=== PATIENT | male | born 1955 | race Caucasian/White ===

== ENCOUNTER → 2016-03-02 | Outpatient (CLI) | payer OTHER ==
[~2016-03-02] MED LIST: ASPIRIN 81M81 MG/TA2 PO; CELEBREX 1100 MG/CAP PO; FLEXERIL 1010 MG/TAB PO; HCTZ 25MG TAB25 MG PO; LIPITOR20 MG PO; PLAVIX 75MG TAB75 MG PO; TOPROL XL 50MG50 MG PO; ULTRAM 50MG TAB50 MG PO
== END ==
LOC: COL.RAD 09:12
DX: Z02.71 Encounter for disability determination (principal); M48.06 Spinal stenosis, lumbar region; G95.89 Other specified diseases of spinal cord

== ENCOUNTER 2016-06-01 12:30 | Outpatient (RCR) | payer MEDICAID | END 2016-06-02 07:57 | disposition home or self-care (01) | LOC: WSPT 12:30 | DX: M21.372 Foot drop, left foot (principal) ==

== ENCOUNTER 2016-07-08 08:33 | Day surgery (SDC) | payer MEDICAID ==
[2016-07-08] VITALS (11 sets, daily range): BP systolic 140–183; BP diastolic 82–108; PULSE 12–117; TEMP 98.5
[~2016-07-08] VITALS: Ht 172.8 cm; Wt 90.9 kg
[2016-07-08] MEDS ORDERED: FLEXERIL 1010 MG/TAB PO (09:50)
[2016-07-08] MEDS ORDERED: ULTRAM 50MG TAB50 MG PO (09:50)
[2016-07-08] MEDS ORDERED: HCTZ 25MG TAB25 MG PO (09:50)
[2016-07-08] MEDS ORDERED: CELEBREX 1100 MG/CAP PO (09:51)
[2016-07-08 10:11] LABS: HEMATOCRIT 48.8 % (42.0-52.0); HEMOGLOBIN 17.2 g/dl (13.5-18.0); MEAN CELL VOLUME 89 fl (80.0-100.0); MEAN CORPUSCULAR HEMOGLOBIN 31 pg (27.0-31.0); MEAN CORPUSCULAR HGB CONC 35 g/dl (33.0-37.0); MEAN PLATELET VOLUME 9.1 fl (7.4-10.4); PLATELET COUNT 224 K/mm3 (130-400); RED BLOOD COUNT 5.48 M/mm3 (4.20-5.60); REDCELL DISTRIBUTION WIDTH-CV 12.6 % (11.5-14.5); WHITE BLOOD COUNT 4.1 K/mm3 (4.8-10.8)
[2016-07-08 10:13] LABS: PROTHROMBIN TIME 10.5 SECONDS (9.7-12.8)
[2016-07-08 10:26] LABS: CALCIUM 9.1 mg/dL (8.4-10.2); CREATININE, serum 0.75 mg/dL (0.66-1.25); POTASSIUM 3.8 mmol/L (3.4-5.0)
[2016-07-08] MEDS ORDERED: ASPIRIN 81M81 MG/TA2 PO (19:10)
[2016-07-08] MEDS ORDERED: PLAVIX 75MG TAB75 MG PO (19:10)
[2016-07-08] MEDS ORDERED: TOPROL XL 50MG50 MG PO (19:11)
[2016-07-08] MEDS ORDERED: LIPITOR20 MG PO (19:11)
== END 2016-07-08 19:17 | disposition home or self-care (01) ==
LOC: EUO 08:33 → COL.CAR 09:00 → EUO 19:17
PROVIDERS: Internal Medicine Cardiovascular Disease
DX: I25.10 Atherosclerotic heart disease of native coronary artery without angina pectoris (principal)
CPT/HCPCS: C1760; C1769; C1894; J0360; J1644; J2250; J3010; Q9967

== ENCOUNTER 2016-10-22 15:00 | Outpatient (RCR) | payer MEDICAID | END 2016-12-07 | disposition home or self-care (01) | LOC: COL.CR | DX: Z48.812 Encounter for surgical aftercare following surgery on the circulatory system (principal); Z95.5 Presence of coronary angioplasty implant and graft; I25.119 Atherosclerotic heart disease of native coronary artery with unspecified angina pectoris ==

== ENCOUNTER → 2017-09-28 | Outpatient (CLI) | payer MEDICARE, MEDICAID | LOC: MC.RAD 12:55 | DX: N62 Hypertrophy of breast (principal); N63.20 Unspecified lump in the left breast, unspecified quadrant ==

== ENCOUNTER 2018-12-14 11:37 | Inpatient (IN) | payer MEDICARE, MEDICAID ==
[~2018-12-14] VITALS: Ht 172.7 cm; Wt 96.4 kg
[2019-02-28] VITALS (11 sets, daily range): BP systolic 124–205; BP diastolic 72–123; PULSE 83–125; TEMP 97.5–98.2
[2019-02-28] MEDS ORDERED: GLUCOPHAGE1000 MG PO (07:23)
[2019-02-28] MEDS ORDERED: NITRO-DUR0.1 MG/PAT TD (07:24)
[2019-02-28] MEDS ORDERED: ALTACE 10MG TAB10 MG PO (07:25)
--- NOTE | 2019-02-28 12:40 | NUR ---
PATIENT BACK IN ROOM 331 POST OP. A&O. NOTED HYPERTENSION IN 160-170'S SYSTOLIC. ALL OTHER VSS. DENIES PAIN IN RLE. RTK DRESSING IS CD&I. TEDS & SCD'S TO BLE. POSITIVE PEDAL PULSES. HAMM TO DD. IV FLUIDS INFUSING VIA PUMP. NO C/O N/V. LIQUIDS AT BEDSIDE. HEAD TO TOE WNL. AT BEDSIDE. CALL LIGHT IN REACH.
--- NOTE | 2019-02-28 13:55 | NUR ---
PATIENT IS INCREASINGLY CONFUSED AND AGGITATED. NOTED B/P IS INCREASINGLY HYPERTENSIVE, NOW IN 190'S SYSTOLIC. ORTHO AT BEDSIDE ROUNDING. CALLED HOSPITALIST CONSULT. PATIENT IS ALSO TACHYCARDIC AT 115. PATIENT DOESN'T SEEM TO KNOW WHAT HE WANTS BUT KEEPS TRYING TO GET OUT OF BED AND IS MESSING WITH ALL HIS CORDS/LINES. NURSING AT BEDSIDE.
--- NOTE | 2019-02-28 14:40 | NUR ---
HOSPITALIST AT BEDSIDE. PATIENT STILL VERY ANXIOUS. PATIENT DOES ADMIT HE DRINKS DAILY. PATIENT REPORTS "I CAN DRINK A 12 PACK A NIGHT". WHEN ASKED IF HE WOULD GO THROUGH WITHDRAWL SYMPTOMS IF HE DIDN'T DRINK FOR A DAY OR TWO. PATIENT REPLIED "I DON'T KNOW, I HAVE NEVER TRIED".
--- NOTE | 2019-02-28 14:50 | NUR ---
Initial visit; Patient thanked Solution Make Up Operator for looking in on him and offering God's blessings.
--- NOTE | 2019-02-28 14:57 | NUR ---
SW met with the patient to discuss discharge plan. The patient lives in [place] with his girlfriend of six-seven years, Maria G Sanchez ([phone]). He reports independence with ADLs and has a cane, walker, and wheelchair. The patient's PCP is Dr. Grzegorz Sanchez and he receives his medications at [facility]. He reports no difficulties obtaining his meds. The patient does not have advanced directives in EMR, but he states that he does have them completed at at home. He states that Maria G is his DPOA-HC. The patient plans to return home with his girlfriend and receive outpatient PT upon discharge. He was unsure of where and if appointments were already set up at an outpatient PT therapy center. He states that his girlfriend would know. No additional needs at this time, but SW to continue to follow.
--- NOTE | 2019-02-28 14:58 | NUR ---
PATIENT STILL VERY AGGITATED AND YELLED AT HOSPITALIST WHEN ALCOHOL WITHDRAWL WAS MENTIONED. PATIENT DID ANSWER ORIENTATION QUESTIONS CORRECTLY HOWEVER SEEMS TO HAVE A HARD TIME TRACKING DURING CONVERSATIONS. HE REPEATEDLY TRIES TO GET UP, MESSES WITH HIS CORD, AND THRASHES AROUND IN THE BED. B/P CURRENTLY IS 152/123 WITH HR OF 124. PATIENT IS SLIGHTLY DIAPHORETIC, FLUSHED FACE WITH PURPLE COLORED NOSE. PATIENT JUST CAN'T SEEM TO SETTLE DOWN AND RELAX. HE CONTINUOUSLY REPOSITIONS HIMSELF.
[2019-02-28 15:04] LABS: BASO % 0.4 % (0.0-2.0); EOS # 0.1 (0.0-0.7); EOS % 1.2 % (0-4.0); GRAN # 5.6 (1.4-6.5); GRAN % 68.1 % (42.2-75.2); HEMATOCRIT 44.5 % (42.0-52.0); HEMOGLOBIN 14.6 g/dl (13.5-18.0); LYMPH # 1.7 (1.2-3.4); LYMPH % 20.8 % (20.0-51.0); MEAN CELL VOLUME 93 fl (80.0-100.0); MEAN CORPUSCULAR HEMOGLOBIN 30 pg (27.0-31.0); MEAN CORPUSCULAR HGB CONC 33 g/dl (33.0-37.0); MEAN PLATELET VOLUME 10.5 fl (7.4-10.4); MONO # 0.8 (0.1-0.6); MONO % 9.1 % (1.7-9.3); PLATELET COUNT 271 K/mm3 (130-400); RED BLOOD COUNT 4.81 M/mm3 (4.20-5.60)
[2019-02-28 15:10] LABS: ALANINE AMINOTRANSFERASE 45 U/L (21-72); ALBUMIN 4.1 gm/dL (3.5-5.0); ALKALINE PHOSPHATASE 80 U/L (50-136); ANION GAP 10 mmol/L (7-16); AST,SGOT 28 U/L (15-37); BILIRUBIN,TOTAL 0.5 mg/dL (0.0-1.0); BLOOD UREA NITROGEN 10 mg/dL (9-20); CALCIUM 9.1 mg/dL (8.4-10.2); CARBON DIOXIDE 27 mmol/L (22-30); CHLORIDE 105 mmol/L (98-107); GLUCOSE 117 mg/dL (74-106); MAGNESIUM 1.9 mg/dL (1.6-2.3); POTASSIUM 4.5 mmol/L (3.4-5.0); SODIUM 142 mmol/L (137-145)
[2019-02-28 15:11] LABS: ALCOHOL(ethanol),MEDICAL < 10 mg/dL
--- NOTE | 2019-02-28 16:00 | NUR ---
PATIENT STILL VERY CONFUSED AND AGGITATED REQUIRING TWO STAFF MEMBERS AND HIS GIRLFRIEND AT BEDSIDE. SEIZURE PADS INPLACE PER DETOX PROTOCOL. PATIENT IS RED IN THE FACE, DIAPHORETIC, AGGITATED AND VERY RESTLESS IN BED. PATIENT CAN NOT FOLLOW SIMPLE INSTRUCTIONS TO STAY STILL FOR B/P. B/P NOW 200'S SYSTOLIC WITH HR IN 120-130'S. GAVE PRN LOPRESSOR IV. HOSPITALIST NOTIFIED.
--- NOTE | 2019-02-28 17:00 | NUR ---
PATIENT STARTING TO GET VIOLENT WITH STAFF/FAMILY. PATIENT IS HITTING AND PUNCHING. STAFF/FAMILY X4 PEOPLE HAD TO ASSIST PATIENT BACK INTO BED SEVERAL TIMES. PATIENT FLINGING HIS OPERATIVE LEG OVER THE BED AND KICKING BLE. APPLIED TECHNOL BRACE TO RLE FOR RTK STABILITY. PATIENT REQUIRING CONSTANT SUPERVISION, STAFF ROTATING.
--- NOTE | 2019-02-28 17:00 | NUR ---
PATIENT STILL VERY AGGITATED AND WORKING HIMSELF UP INTO A SWEAT. REPEATED IV ATIVAN PER ETOH PROTOCOL. STAFF AND FAMILY AT BEDSIDE AT ALL TIMES
[2019-02-28 17:38] LABS: COLLECTION METHOD CLEAN CATCH
--- NOTE | 2019-02-28 17:40 | NUR ---
PATIENT'S CONFUSION AND AGGITATION IS NOT IMPROVING. GAVE ORDERED LIBRIUM. PATIENT TOOK THE PILLS WILLING BUT WILL NOT STAY IN BED OR LISTEN TO STAFF/FAMILY.
[2019-02-28 17:51] LABS: MUCOUS Present /lpf; PH 6 (5-8); SQUAMOUS EPITHELIAL None Seen /hpf; URINE APPEARANCE Clear; URINE BACTERIA None Seen /hpf; URINE BILIRUBIN Negative (NEGATIVE); URINE BLOOD 3+ (NEGATIVE); URINE COLOR Straw; URINE GLUCOSE 1+ (NEGATIVE); URINE KETONE Negative (NEGATIVE); URINE LEUKOCYTE ESTERASE Negative (NEGATIVE); URINE NITRATE Negative (NEGATIVE); URINE PROTEIN(semi-quant) Negative (NEGATIVE); URINE RBC >50 /hpf; URINE UROBILINOGEN Negative (NEGATIVE); URINE WBC 0-2 /hpf
--- NOTE | 2019-02-28 18:50 | NUR ---
PATIENT MORE CALM AT THIS MOMENT AND IS SITTING UP IN BED WITH SUPPER TRAY. AT BEDSIDE. WILL CONTINUE TO OBSERVE.
--- NOTE | 2019-02-28 19:15 | NUR ---
PATIENT BACK AT TRYING TO CLIMB OUT OF BED. PATIENT SEEMS SLIGHTLY LESS AGGITATED AT THIS TIME. PATIENT HAS BEEN GIVEN SEVERAL DOSES OF MEDICATIONS TO HELP WITH AGGITATION/DETOX, SEE MAR.
--- NOTE | 2019-02-28 19:21 | NUR ---
Pt has been going in and out of slight to severe agitation. For a very extended amount of time it took 4 people to keep him from getting out of bed. Knee immobilizer placed on right leg as he kept bending his knee trying to get up. Pt kept trying to pull at all the cords, IV, Stevens, telemetry, BP cuff, etc. I did take off the SCD to his left leg and turned them off. I sat with the patient from 1430 until 1900. From 1940-4603 was the worse agitation. At about 1830 the patient did calm down enough to eat a few bites of food. At this time Dr Coppola did come in to see him. Patient was calm at this time. Approximately 1900 the patient started trying to get up again. New sitter arrived at this time
--- NOTE | 2019-02-28 21:02 | NUR ---
Pt scored 6 on detox protocol. PRN ativan 1mg given. Patient is alert. He is restless. Patient sitter in room. VSS, bp is trending down. PRN morphine given as pt is complaining of pain. PM meds given. Ice on right knee. Stevens to dependent drainage. will continue to monitor
--- NOTE | 2019-02-28 22:07 | NUR ---
prn labetolol given as bp was 194/97
--- NOTE | 2019-02-28 23:16 | NUR ---
Patient still very restless, librium 50mg given.
--- NOTE | 2019-02-28 23:54 | NUR ---
prn haldol given as pts restlessness continue to increase
[2019-03-01] VITALS (357 sets, daily range): BP systolic 71–213; BP diastolic 48–123; PULSE 74–133; TEMP 97.6–99.7; O2SAT 79–100
--- NOTE | 2019-03-01 00:13 | NUR ---
PT increasing restless, hospitalist nofitied. haldol 5mg given per doctor order
--- NOTE | 2019-03-01 00:56 | NUR ---
pt sleeping in bed comfortable. call light within reach, will continue to monitor
--- NOTE | 2019-03-01 02:08 | NUR ---
Pt still sleeping comortably in bed after receving 8mg of haldol. Pt is on tele and HR is 94, which is the lowest it has been. Will not wake patient up out of sleep for vital signs at this time. Sitter in room with patient. Call light within reach, will continue to monitor
--- NOTE | 2019-03-01 04:02 | NUR ---
Pt woke up and became very restless, trying to get out of bed and swinging at staff. Pt would not let staff take his vital signs as he kept moving and trying to take all of his wires off, tele, sousa and catheter. PRN ativan 1 mg given along with haldol. 100mg of librium given per hospitalist.
--- NOTE | 2019-03-01 04:03 | NUR ---
Pt detox protocol not evaluated as patient would not let staff take vitals
--- NOTE | 2019-03-01 04:21 | NUR ---
Pt now resting in bed sleeping with HOB at 45deg. Sitter in room. Call light within reach, will continue to monitor
--- NOTE | 2019-03-01 05:28 | NUR ---
Pt still severely restless despite all PRN meds given. PRN ativan 2mg given per hospitalist. Taking 3 nursing staff members to keep patient from getting out of bed and pulling out wires. Pt not allowing staff to take vital signs.
--- NOTE | 2019-03-01 05:50 | NUR ---
Pt still restless and agitated. TRying to get out of bed. 2 nursing staff in room trying to prevent patient from getting out of bed and pulling cords. patient has not kept right knee straight, keeps kicking and moving it.
--- NOTE | 2019-03-01 06:29 | NUR ---
Pt continues to be restless, taking 2 people to keep from getting out of bed. Pt gf brought him some pancakes and patient was able to eat a pancake and drink fluids with no issues. Pt still trying to pull off leads and sousa.
--- NOTE | 2019-03-01 07:00 | NUR ---
Patient agitated, continually tries to get OOB, does not comprehend his recent knee surgery. Family and sitter at bedside.
--- NOTE | 2019-03-01 07:45 | NUR ---
Patient alert, agitated, answers questions appropriately with much encouragement. Will relax and talk appropriately with gentle voice prompting, but immediately goes back to thrashing and trying to get OOB. Continues to not comprehend recent knee surgery and knee precautions. Incision to RTK with dressing CDI, brace and JOANNE hose in place. Pulses and neuros intact to RLE. Fall precautions initiated, seizure precautions in place. Stevens catheter in place, patent and draining clear yellow urine. Sitter and family member remain at bedside. Ativan 2mg IV given per CIWA protocol.
--- NOTE | 2019-03-01 09:00 | NUR ---
Dr Robert here to see patient.
--- NOTE | 2019-03-01 09:40 | NUR ---
SW attended clinical rounds. The patient's girlfriend, May, was at bedside. The patient became agitated and aggressive overnight. May states that the patient used to drink around 12-15 beers a night and has recently decreased it to 2-4 beers a night. The patient is scoring on the CIWA. The patient is to be transferred to the ICU today for Precedex IV. BRYANNA then followed up with the patient's girlfriend, May. May reports that she is the patient's DPOA-HC and that she has the documents at home. SW encouraged her to bring a copy to the hospital. SW to continue to follow.
--- NOTE | 2019-03-01 10:05 | NUR ---
Patient sleeping in bed, occasional thrashing noted. Ativan 2mg given per CIWA protocol.
--- NOTE | 2019-03-01 12:20 | NUR ---
Patient agitated, attempting to get OOB. Discontinues IV. Ativan given per CIWA score.
--- NOTE | 2019-03-01 16:00 | NUR ---
Patient agitated, attempting to get OOB and pulling at IV. Ativan 2mg IV given per CIWA protocol.
--- NOTE | 2019-03-01 16:15 | NUR ---
Report given to ARMAAN Duffy ICU. Patient transferred to ICU.
--- NOTE | 2019-03-01 16:20 | NUR ---
Patient arrives to ICU 3 via bed and is transferred to ICU bed and monitors. Assessment and vitals as charted. Patient extremely agitated and restless with only momentary reorientation possible. Family at bedside. Patient tugging at sousa catheter, nasal cannula, and peripheral IV site. Mitts applied. Care onging.
--- NOTE | 2019-03-01 17:29 | NUR ---
Dr. England called with update. Notified that patient is on max allowable dose of precedex with maintained notable irritation, tachypnea, and tachycardia noted. discusses possiblility of intubation with further sedation while patient detoxes. Requests this RN to call hospitalist and update him with their opinion of POC.
--- NOTE | 2019-03-01 17:30 | NUR ---
Dr. Robert called and provided update to patient assessment and situation. Also made aware of phone call to Dr. England. States he will be down to assess patient shortly.
--- NOTE | 2019-03-01 17:37 | NUR ---
Dr. Robert rounds at this time. Recommendation made to have patient intubated secondary to restlessness, increased WOB, and tachycardia. MD visits with family at bedside who verbalize understanding.
--- NOTE | 2019-03-01 17:41 | NUR ---
Dr. England notified of plan to intubate patient per hospitalist recommendation. States he will be in at 1830 to complete this. Care ongoing.
--- NOTE | 2019-03-01 18:15 | NUR ---
Dr. England present. Visits with family regarding POC including intubation. Maria G, girlfriend and DPOA signs consent.
--- NOTE | 2019-03-01 18:30 | NUR ---
Following note to contain timeline for RSI and associated cares completed at bedside. 1817 Patient with OM at 6L in place VS set to cycle Q5min 181 Dr England provides supplementary O2 via BMV 1820 60mg propofol and 60mg Succinylcholine given per MD England and bilateral soft wrist restraints applied 182 Intubation by MD England with 7.5 ETT secured at 25 @ teeth. RT present to secure tube and attach patient to ventilator at settings provided by MD at bedside. 182 10mg vecuronium piggery worker per VORB Dr. England 182 40mg propofol given per MD England 1825 OG placed and secured 60cm @ teeth and verified by both gastric content aspiration and gastris auscultation 1826propofol gtt started at 20mcg/kg/min and Xray at bedside for portable chest xray 1827 ETT tube advanced by RT following VORB by MD England to 26 @ teeth and OG advanced to 65cm @ teeth by RN ventilator settings at this time AC 500TV 20RR 5Peep 50%FiO2 Prior documented precedex gtt remains running for duration of cares outlined above as VORB by Dr. England. See MAR for additional documentation.
[2019-03-01 18:55] LABS: BASO % 0.1 % (0.0-2.0); EOS % 0.2 % (0-4.0); GRAN # 6.2 (1.4-6.5); GRAN % 75.8 % (42.2-75.2); LYMPH # 0.8 (1.2-3.4); LYMPH % 9.3 % (20.0-51.0); MEAN CELL VOLUME 92 fl (80.0-100.0); MEAN CORPUSCULAR HGB CONC 34 g/dl (33.0-37.0); MEAN PLATELET VOLUME 10.2 fl (7.4-10.4); MONO # 1.2 (0.1-0.6); MONO % 14.1 % (1.7-9.3); PLATELET COUNT 180 K/mm3 (130-400); RED BLOOD COUNT 3.29 M/mm3 (4.20-5.60)
--- NOTE | 2019-03-01 19:10 | NUR ---
Patient with hypotension noted. Propofol gtt placed on standby at this time.
[2019-03-01 19:12] LABS: HEMATOCRIT 30.4 % (42.0-52.0); HEMOGLOBIN 10.4 g/dl (13.5-18.0); MEAN CORPUSCULAR HEMOGLOBIN 32 pg (27.0-31.0)
[2019-03-01 19:16] LABS: ALBUMIN 2.3 gm/dL (3.5-5.0); BILIRUBIN,TOTAL 0.5 mg/dL (0.0-1.0); CREATININE, serum 0.59 (0.66-1.25); MAGNESIUM 1.1 mg/dL (1.6-2.3); PHOSPHOROUS 2.4 mg/dL (2.5-4.5); TOTAL PROTEIN 4.9 gm/dL (6.4-8.2)
--- NOTE | 2019-03-01 19:20 | NUR ---
Bedside report received from ARMAAN Duffy. All lines, tubes, and medications confirmed. Transfer of care.
--- NOTE | 2019-03-01 19:22 | NUR ---
Bedside report provided to ARMAAN Magaña. Family remains at bedside. Patient intubated and sedated. Soft wrist restraints remain in place. Stevens catheter to dependent drainage with positive UO. OG to LIS with gastric content noted. Peripheral IV sites x3 without complications. IV gtt rates and concentrations verified. ETT and OG tube placement verified and ventilator settings confirmed. Patient remains hypotensive and this is noted at time of bedside report. Care completed.
[2019-03-01 19:28] LABS: CALCIUM 5.6 mg/dL (8.4-10.2)
--- NOTE | 2019-03-01 20:00 | NUR ---
Patient resting on the vent. He is still unresponsive from paralytic given during intubation. Pupils are 2mm and sluggish to light. Lungs are clear in all doshi with diminished bases bilaterally. HR and rhythm are regular with normal S1 and S2 heard. Bowel sounds active x4. Patient is passing gas. Patient is having some low urine output. Flushed Stevens and got some increase in return, will continue to monitor. Patient has no edema and peripheral pulses are palpable in all extremities. Patient has an abrasion to his left second toe from rubbing it on the opposite leg trying to get the TEDs off, per SO. Patient has no further needs at this time. Will continue to monitor. Call light within reach.
[2019-03-01 20:24] LABS: ARTERIAL BLD GAS O2 SATURATION 98.8 % (92-100); ARTERIAL BLD GAS TCO2 CT 24.7; ARTERIAL BLOOD GAS HCO3 23.7 meq/L (22-26); ARTERIAL BLOOD GAS PCO2 32.1 mmHg (35-45); ARTERIAL BLOOD GAS pH 7.49 (7.35-7.45)
[2019-03-01 20:26] LABS: ARTERIAL BLOOD GAS PO2 125.2 mmHg (80-100)
[2019-03-01 23:49] LABS: ARTERIAL BLD GAS O2 SATURATION 94.6 % (92-100); ARTERIAL BLD GAS TCO2 CT 21.7; ARTERIAL BLOOD GAS BASE EXCESS -2.6 (-2-2); ARTERIAL BLOOD GAS HCO3 20.8 meq/L (22-26); ARTERIAL BLOOD GAS PCO2 31.5 mmHg (35-45); ARTERIAL BLOOD GAS PO2 69.5 mmHg (80-100); ARTERIAL BLOOD GAS pH 7.44 (7.35-7.45)
[2019-03-02] VITALS (853 sets, daily range): BP systolic 104–166; BP diastolic 61–787; PULSE 74–109; TEMP 98.9–101.1; O2SAT 69–100
--- NOTE | 2019-03-02 | NUR ---
Patient resting on the vent. Patient is now resposive to pain, but still does not open eyes. He is not following commands. He does move extremities on occassion and fights against staff when turning. Assessment complete with no other changes from previous exam. Vitals remain stable. No further needs at this time. Will continue to monitor. Call light within reach.
--- NOTE | 2019-03-02 04:00 | NUR ---
Patient resting on the vent. Vitals obtained and remain stable. Assessment complete with no changes from previous exam. No current needs at this time. Will continue to monitor. Call light within reach.
[2019-03-02 05:55] LABS: ARTERIAL BLD GAS O2 SATURATION 96.9 % (92-100); ARTERIAL BLD GAS TCO2 CT 20.9; ARTERIAL BLOOD GAS BASE EXCESS -3.4 (-2-2); ARTERIAL BLOOD GAS HCO3 19.9 meq/L (22-26); ARTERIAL BLOOD GAS PCO2 30.6 mmHg (35-45); ARTERIAL BLOOD GAS PO2 85.6 mmHg (80-100); ARTERIAL BLOOD GAS pH 7.43 (7.35-7.45)
[2019-03-02 06:44] LABS: CALCIUM 8.7 mg/dL (8.4-10.2); CREATININE, serum 1.01 (0.66-1.25); MAGNESIUM 2.4 mg/dL (1.6-2.3); PHOSPHOROUS 3.9 mg/dL (2.5-4.5); POTASSIUM 5.2 mmol/L (3.4-5.0)
[2019-03-02 07:05] LABS: HEMATOCRIT 37.9 % (42.0-52.0); MEAN CELL VOLUME 91 fl (80.0-100.0); MEAN CORPUSCULAR HEMOGLOBIN 31 pg (27.0-31.0); MEAN CORPUSCULAR HGB CONC 34 g/dl (33.0-37.0); MEAN PLATELET VOLUME 10.7 fl (7.4-10.4); PLATELET COUNT 181 K/mm3 (130-400); RED BLOOD COUNT 4.17 M/mm3 (4.20-5.60); REDCELL DISTRIBUTION WIDTH-CV 13.2 % (11.5-14.5)
--- NOTE | 2019-03-02 07:24 | NUR ---
Bedside report given to ARMAAN Tong. All lines, tubes, and medications confirmed.Transfer of care at this time.
[2019-03-02 07:29] LABS: HEMOGLOBIN 12.8 g/dl (13.5-18.0)
[2019-03-02 07:45] LABS: BAND 7 % (0-10); LYMPHOCYTE 8 % (20.0-51.0); NEUTROPHILS 72 % (42.0-75.2); PLATELET ESTIMATE NORMAL (NORMAL)
--- NOTE | 2019-03-02 07:45 | NUR ---
PT DOES NOT QUALIFY FOR [facility]. PT TACHYCARDIC, TACHYPNEIC, DIAPHORETIC, AND HYPERTENSIVE. PROPOFOL GTT RETURNED TO 15MCG/KG/MIN AND FENTANYL GTT INCREASED TO 25MCG/HR FROM 12.5 MCG/MIN. PT ALSO GIVEN ATIVAN PER CWA PROTOCOL.
--- NOTE | 2019-03-02 08:00 | NUR ---
ATTEMPTED TO FLUSH IV TO LEFT FOREARM. IV INFILTRATED. IV DISCONTINUED. TIP INTACT.
--- NOTE | 2019-03-02 09:00 | NUR ---
MIKE RAMACHANDRAN NURSE PRESENT TO INSERT PICC LINE.
--- NOTE | 2019-03-02 09:30 | NUR ---
ATTEMPTED TO CALL [facility] WITH DR NIETO TO INQUIRE ABOUT LOVENOX AND TO REPORT FEVER. NO ANSWER FROM [facility], VOICE MESSAGE LEFT.
--- NOTE | 2019-03-02 11:48 | NUR ---
The patient is intubated and sedated. director field services will continue to follow.
--- NOTE | 2019-03-02 14:00 | NUR ---
ICU ROOM 3 NEEDED FOR DIALYSIS. PATIENT MOVED TO ROOM 2. PT'S GF/DPOA MADE AWARE.
--- NOTE | 2019-03-02 15:59 | NUR ---
I TRIED CALLING TYREE, [facility] WITH DR NIETO AGAIN TO INQUIRE ABOUT LOVENOX I HAD NOT YET RECIEVED A CALL BACK. TYREE SPOKE WITH DR NIETO AND HE IS OK WITH GIVING PATIENT LOVENOX LONG THE DOSE DOES NOT EXCEED 40 MG BID. CURRENT ON HOLD ORDER IS FOR LOVENOX 40 MG q24. ORDER RESUMED PER DR NIETO. DR NIETO ALSO WANTED TO PROVIDE SOME ROM INSTRUCTIONS FOR PT WHICH ARE FULL EXTENSION TO RIGHT KNEE AND NO MORE THAN 90 DEGREES FOR FLEXION.
--- NOTE | 2019-03-02 17:12 | NUR ---
ATTEMPTED TO CALL HOSPITALIST D/T PT'S BP AND HEART RATE. UNABLE TO REACH HER AT THIS TIME. WILL ATTEMPT IN A FEW MINS.
--- NOTE | 2019-03-02 17:19 | NUR ---
CONTACTED DR THOMAS REGARDING PATIENT'S BP AND HR. PROVIDER STATES TO RESUME PATIENT'S HOME DOSES OF TOPROL XL 50MG PO DAILY.
--- NOTE | 2019-03-02 19:20 | NUR ---
RECEIVED REPORT FROM ARMAAN REEDER. PT RESTING EASILY ON CURRENT VENT SEETINGS. SEE GTT TITRATIONS. VSS. FC PATENT AND DRAINING TO GRAVITY. CRYO CUFF IN PLACE TO RT KNEE.
--- NOTE | 2019-03-02 23:30 | NUR ---
RESIDUAL CHECKED, 22ML. TF INCREASED PER ORDERS TO 30 ML/HR AT THIS TIME.
[2019-03-03] VITALS (1165 sets, daily range): BP systolic 128–172; BP diastolic 66–93; PULSE 104–130; TEMP 98.7–100.1; O2SAT 92–100
[2019-03-03 05:47] LABS: HEMOGLOBIN 11.7 g/dl (13.5-18.0); MEAN CELL VOLUME 92 fl (80.0-100.0); MEAN CORPUSCULAR HEMOGLOBIN 31 pg (27.0-31.0); MEAN CORPUSCULAR HGB CONC 33 g/dl (33.0-37.0); MEAN PLATELET VOLUME 10.6 fl (7.4-10.4); PLATELET COUNT 210 K/mm3 (130-400); RED BLOOD COUNT 3.83 M/mm3 (4.20-5.60); REDCELL DISTRIBUTION WIDTH-CV 13.1 % (11.5-14.5)
[2019-03-03 05:51] LABS: HEMATOCRIT 35.3 % (42.0-52.0)
[2019-03-03 05:52] LABS: CALCIUM 8.4 mg/dL (8.4-10.2); CREATININE, serum 0.91 (0.66-1.25); PHOSPHOROUS 3.5 mg/dL (2.5-4.5); POTASSIUM 3.7 mmol/L (3.4-5.0)
[2019-03-03 06:09] LABS: ARTERIAL BLOOD GAS pH 7.48 (7.35-7.45)
[2019-03-03 06:10] LABS: ARTERIAL BLD GAS O2 SATURATION 96.5 % (92-100); ARTERIAL BLOOD GAS BASE EXCESS 1.1 (-2-2); ARTERIAL BLOOD GAS HCO3 24.3 meq/L (22-26); ARTERIAL BLOOD GAS PCO2 33.6 mmHg (35-45); ARTERIAL BLOOD GAS PO2 83.2 mmHg (80-100)
--- NOTE | 2019-03-03 06:47 | NUR ---
PT REMAINS ON WEANING TRAIL AND SEDATION VACATION AT THIS TIME. PT STILL APPEAR FAIRLY DORWSY AND TRIES TO OPEN EYES TO VERBAL STIMULI. NOTED PT TO FIGHT VENT OCCASSIONALLY BUT IS ABLE TO CALM DOWN WITH VERBAL SOOTHING COMMANDS. TOLERATING VENT WEANING TRIAL.
--- NOTE | 2019-03-03 07:20 | NUR ---
PT STARTED COUGHING AGAINST VENT AND UNABLE TO FOLLOW COMMANDS. PT DOES NOT FULLY OPEN EYES TO VERBAL STIMULI. HR 130s. RT AT BEDSIDE TO RESET PREVIOUS VENT SETTINGS. PROPFOL AND FENTANYL PLACED BACK ON PREVIOUS TITRATIONS PRIOR TO SEDAITION VACATION. PT ABLE TO CALM DOWN AFTER FIVE MINUTES OF GTT'S BACK.
--- NOTE | 2019-03-03 08:00 | NUR ---
Shift assessment complete at this time. Plan of care reviewed at bedside with family. Additional time taken to address any other needs or concerns. Vitals stable at this time. CPOT score 0 while on Propofol and Fentanyl gtts. Bed in low position, will continue to monitor.
[2019-03-03 10:06] LABS: LYMPHOCYTE 19 % (20.0-51.0); NEUTROPHILS 68 % (42.0-75.2)
[2019-03-03 10:07] LABS: PLATELET ESTIMATE NORMAL (NORMAL)
--- NOTE | 2019-03-03 12:00 | NUR ---
Shift reassessment complete at this time. No changes from previous assessment noted. Vitals stable at this time. CPOT score 0 while on Propofol and Fentanyl gtts. Bed in low position, will continue to monitor.
--- NOTE | 2019-03-03 16:00 | NUR ---
Shift reassessment complete at this time. No changes from previous assessment noted. Vitals stable at this time. CPOT 0 while on sedation and analgesics. Bed in low position, will continue to monitor.
--- NOTE | 2019-03-03 17:00 | NUR ---
Sedation vacation performed at this time. Propofol et Fentanyl gtts reduced by one-half. Will continue to monitor closely for signs of agitation or restlessness with reduced sedation.
[2019-03-03 17:19] LABS: ARTERIAL BLD GAS O2 SATURATION 96.7 % (92-100); ARTERIAL BLD GAS TCO2 CT 25.5; ARTERIAL BLOOD GAS HCO3 24.6 meq/L (22-26); ARTERIAL BLOOD GAS PCO2 31.7 mmHg (35-45); ARTERIAL BLOOD GAS PO2 78.8 mmHg (80-100); ARTERIAL BLOOD GAS pH 7.51 (7.35-7.45)
--- NOTE | 2019-03-03 17:26 | NUR ---
Propofol and Fentanyl sedation gtts resumed at previous rates r/t increased restlessness et tachycardia demonstrated by Pt. Will continue to monitor.
--- NOTE | 2019-03-03 19:20 | NUR ---
RECEIVED REPORT FROM ARMAAN TERRY. PT RESTING EASILY ON CURRENT VENT SETTINGS: AC, TV 420, FIO2 40%, PEEP 7, RATE 16. SEE GTT TITRATIONS FLOWSHEET. FC PATENT AND DRAING TO GRAVITY. VSS.
--- NOTE | 2019-03-03 19:28 | NUR ---
Bedside report given to ARMAAN Lock.
[2019-03-04] VITALS (807 sets, daily range): BP systolic 120–160; BP diastolic 64–81; PULSE 104–128; TEMP 97.5–101; O2SAT 91–100
--- NOTE | 2019-03-04 06:00 | NUR ---
PT REMAINS ON WWEANING TRIAL. ATTRIBUTE CHANGE IN VITAL SIGNS TO SEDATION VACATION AND WEANING TRIAL CONTINUED. PT HAS NT OPEN EYES TO VERBAL OR PAINFUL STIMULI STILL AT THIS TIME.SEDATION VACATION STARTED AT 0505, SEE GTT TITRATIONS. GIRLFRIEND, MAY, AT BEDSIDE ALKING TO PT AND GIVING ENCOURAGEMENT.
[2019-03-04 06:01] LABS: BASO % 0.2 % (0.0-2.0); EOS # 0.1 (0.0-0.7); EOS % 1.2 % (0-4.0); GRAN # 7.2 (1.4-6.5); HEMOGLOBIN 11.4 g/dl (13.5-18.0); LYMPH # 1.2 (1.2-3.4); LYMPH % 11.1 % (20.0-51.0); MEAN CELL VOLUME 92 fl (80.0-100.0); MEAN CORPUSCULAR HEMOGLOBIN 31 pg (27.0-31.0); MEAN CORPUSCULAR HGB CONC 33 g/dl (33.0-37.0); MEAN PLATELET VOLUME 10.5 fl (7.4-10.4); MONO # 1.9 (0.1-0.6); MONO % 17.9 % (1.7-9.3); PLATELET COUNT 252 K/mm3 (130-400); RED BLOOD COUNT 3.73 M/mm3 (4.20-5.60); REDCELL DISTRIBUTION WIDTH-CV 13.2 % (11.5-14.5)
--- NOTE | 2019-03-04 06:01 | NUR ---
PT IS ON WEANING TRIAL DOING GREAT ON 5 OVER 5. PT IS IN NO DISTRESS EMANUEL WELL. RN AND DAY SHIFT RT WILL BE NOTIFIED.
[2019-03-04 06:21] LABS: CALCIUM 8.1 mg/dL (8.4-10.2); CREATININE, serum 0.92 (0.66-1.25); MAGNESIUM 2.3 mg/dL (1.6-2.3); PHOSPHOROUS 3.9 mg/dL (2.5-4.5)
[2019-03-04 06:25] LABS: HEMATOCRIT 34.3 % (42.0-52.0)
[2019-03-04 06:53] LABS: ARTERIAL BLOOD GAS BASE EXCESS 2.5 (-2-2); ARTERIAL BLOOD GAS HCO3 26.4 meq/L (22-26); ARTERIAL BLOOD GAS PO2 65.3 mmHg (80-100); ARTERIAL BLOOD GAS pH 7.46 (7.35-7.45)
--- NOTE | 2019-03-04 07:10 | NUR ---
Bedside report recieved from ARMAAN Lock.
--- NOTE | 2019-03-04 07:31 | NUR ---
Shift assessment complete at this time. Plan of care reviewed at bedside with family. Additional time taken to address any other needs or concerns. Vitals stable at this time. CPOT score 0 while on fentanyl et propofol gtts. Bed in low position, will continue to monitor.
--- NOTE | 2019-03-04 10:17 | NUR ---
Vancomycin Initial Dosing Pharmacy Note Ordering provider: MD joel Indication/duration: PNA Relevant comorbidities: LABS: WBC 10.4, SCr 0.92, CrCl 85 Recommendation: vancomycin 15 mg/kg Loading dose: 2 grams Maintenance dose: 1.5 grams every 12 hours Trough goal: 15-20 ug/mL
[2019-03-04 11:32] LABS: COLLECTION METHOD CLEAN CATCH
[2019-03-04 11:45] LABS: PH 6 (5-8); SQUAMOUS EPITHELIAL None Seen /hpf; URINE APPEARANCE Hazy; URINE BACTERIA None Seen /hpf; URINE BILIRUBIN Negative (NEGATIVE); URINE BLOOD 3+ (NEGATIVE); URINE COLOR Yellow; URINE GLUCOSE Negative (NEGATIVE); URINE KETONE Negative (NEGATIVE); URINE LEUKOCYTE ESTERASE Negative (NEGATIVE); URINE NITRATE Negative (NEGATIVE); URINE PROTEIN(semi-quant) Negative (NEGATIVE); URINE RBC >50 /hpf; URINE UROBILINOGEN >=4.0 mg/dL (NEGATIVE)
[2019-03-04 11:47] LABS: URINE WBC 0-2 /hpf
--- NOTE | 2019-03-04 12:00 | NUR ---
Shift reassessment complete at this time. No changes from previous assessment noted. Vitals stable at this time. CPOT score 0 while on Propofol et Fentanyl gtts. Bed in low position, will continue to monitor.
--- NOTE | 2019-03-04 12:15 | NUR ---
Pt noted to be agitated, restless, et tachypneic at this time. Sedation vacation ended and Pt resumed on prior sedation dosaging.
--- NOTE | 2019-03-04 16:13 | NUR ---
Tadeo asked to speak with family of patient. SW met with the patient's girlfriend and the girlfriends daughter, and her boyfriend. The girlfriends daughter stated that they wanted to complete a discharge plan. SW educated that we have to wait for Extubation. Girlfriend stated that there is no other family to help the client and they have DPOA. SW could not verify DPOA on file. Nothing in system, sw did not verify chart. SW educated the patient choice and how DPOA works. Family states they would like patient to go to an inpatient rehab but patient also has acute ETOH. SW educated what withdraw may look like but ultimately must be patients choice first. Girlfriend reports that she can not bring the patient home because she can not care for him at this time. Patient is reported to have denied treatment for knee prior to this current stay. Follow up recommeded. TADEO gave family list of Inpatient, Home health care, [facility] list for [place] programs for alcohol use..
--- NOTE | 2019-03-04 17:00 | NUR ---
Pt still currently on morning sedation vacation and CPAP ventilator setting. No changes made to sedation as Pt is resting calm and breathing easily with current sedation settings.
--- NOTE | 2019-03-04 19:29 | NUR ---
Bedside report given to ARMAAN Hernandez.
--- NOTE | 2019-03-04 20:00 | NUR ---
PT ONLY RESPONDING TO PAIN AND YAWNS, DOES NOT OPEN EYES OR FOLLOW COMMANDS. WILL CONTINUE TO MONITOR.
--- NOTE | 2019-03-04 21:42 | NUR ---
PLACED PT BACK IN ASSIST CONTROL AT 2044 TO LET PT REST OVER NIGHT. PT EMANUEL CPAP TRIAL WELL ALL DAY AND THE BEGINNING OF INVESTMENT BANKING MANAGER. WILL CONTINUE TO MONIOTOR AND ASSESS.
[2019-03-05] VITALS (640 sets, daily range): BP systolic 117–177; BP diastolic 68–98; PULSE 98–124; TEMP 97.9–99.5; O2SAT 92–100
--- NOTE | 2019-03-05 00:50 | NUR ---
PY OPENS EYES TO VOICE, MOVES EXTREMITITES IN BED. WILL CONTINUE TO MONITOR.
--- NOTE | 2019-03-05 05:03 | NUR ---
WILL TURN OFF SEDATION AT 0600 PER ORDER.
[2019-03-05 05:13] LABS: ARTERIAL BLD GAS O2 SATURATION 95.8 % (92-100); ARTERIAL BLOOD GAS HCO3 25.3 meq/L (22-26); ARTERIAL BLOOD GAS PCO2 35.2 mmHg (35-45); ARTERIAL BLOOD GAS PO2 73.5 mmHg (80-100); ARTERIAL BLOOD GAS pH 7.48 (7.35-7.45)
--- NOTE | 2019-03-05 05:33 | NUR ---
SEDATION ALL OFF PER ORDER.
--- NOTE | 2019-03-05 05:34 | NUR ---
SEDATION ALL OFF PER ORDER. WILL BEGIN CPAP TRIAL WHEN RT COMES BACK.
--- NOTE | 2019-03-05 06:44 | NUR ---
Dr. Pineda at bedside, significant other-May updated about plan of care by .
[2019-03-05 06:48] LABS: ALBUMIN 3.4 gm/dL (3.5-5.0); BILIRUBIN,TOTAL 0.8 mg/dL (0.0-1.0); CALCIUM 8.2 mg/dL (8.4-10.2); CREATININE, serum 1.02 (0.66-1.25); MAGNESIUM 2.7 mg/dL (1.6-2.3); PHOSPHOROUS 3.9 mg/dL (2.5-4.5); POTASSIUM 4.3 mmol/L (3.4-5.0); TOTAL PROTEIN 6.8 gm/dL (6.4-8.2)
[2019-03-05 06:55] LABS: PRE ALBUMIN 10.6 mg/dL (17.6-36.0)
--- NOTE | 2019-03-05 07:05 | NUR ---
PT ON WEANING TRIAL EMANUEL WELL WITH NO DISTRESS NOTED AT THIS TIME
--- NOTE | 2019-03-05 07:48 | NUR ---
bedside report given to ARMAAN Carreon.
--- NOTE | 2019-03-05 08:00 | NUR ---
Sedation off since 529. Tube feeding paused. Tolerating CPAP but remains drowsy. Does not consistently follow commands.
--- NOTE | 2019-03-05 08:25 | NUR ---
Sedation restarted due to tachypnea, tachycardia, and HTN.
--- NOTE | 2019-03-05 14:36 | NUR ---
The patient remains intubated and failed weaning this day. A copy of advanced directives was provided and designate, Maria G Sanchez. They were placed in the chart.
--- NOTE | 2019-03-05 14:52 | NUR ---
CLIENT RELATIONSHIP MANAGER student met with the patient's life partner, May to introduce oneself. special services supervisor will continue to follow.
[2019-03-06] VITALS (791 sets, daily range): BP systolic 116–169; BP diastolic 62–90; PULSE 97–126; TEMP 97.8–99.9; O2SAT 90–100
--- NOTE | 2019-03-06 04:01 | NUR ---
SEDATION OFF AT 0400 ORDERED.
--- NOTE | 2019-03-06 04:03 | NUR ---
SEDATION OFF AT 0400 ORDERED.
--- NOTE | 2019-03-06 06:55 | NUR ---
NEW AQUACEL DRESSING APPLIED ON RIGHT KNEE PER DR. NIETO'S ORDER. CASS INTACT, NO BLEEDING NOTED.
--- NOTE | 2019-03-06 07:00 | NUR ---
REPORT RECEIVED FROM SADAF CROOK
--- NOTE | 2019-03-06 07:14 | NUR ---
REPORT GIVEN TO ARMAAN REEDER.
[2019-03-06 07:18] LABS: HEMOGLOBIN 11.1 g/dl (13.5-18.0); MEAN CELL VOLUME 95 fl (80.0-100.0); MEAN CORPUSCULAR HEMOGLOBIN 31 pg (27.0-31.0); MEAN CORPUSCULAR HGB CONC 32 g/dl (33.0-37.0); RED BLOOD COUNT 3.62 M/mm3 (4.20-5.60); REDCELL DISTRIBUTION WIDTH-CV 13.3 % (11.5-14.5)
[2019-03-06 07:21] LABS: HEMATOCRIT 34.3 % (42.0-52.0); PLATELET COUNT 352 K/mm3 (130-400)
[2019-03-06 07:26] LABS: ALBUMIN 3.3 gm/dL (3.5-5.0); BILIRUBIN,TOTAL 0.7 mg/dL (0.0-1.0); CALCIUM 8.3 mg/dL (8.4-10.2); CREATININE, serum 0.99 (0.66-1.25); POTASSIUM 4.1 mmol/L (3.4-5.0); TOTAL PROTEIN 6.6 gm/dL (6.4-8.2)
--- NOTE | 2019-03-06 07:35 | NUR ---
PT ABLE TO OPEN HIS EYES AND FOLLOW SOME COMMANDS. PT DIAPHORETIC, HR AT 120, BP 160/84, RESPIRATIONS 32.
--- NOTE | 2019-03-06 07:54 | NUR ---
CONTACTED RADIOLOGY TO COORDINATE A LEFT SIDED THORACENTESIS. CALLED US TO ATTEMPT TO COORDINATE WELL.
[2019-03-06 07:59] LABS: BAND 8 % (0-10); EOSINOPHIL 4 % (0-4); LYMPHOCYTE 9 % (20.0-51.0); METAMYELOCYTE 2 % (0-0); MYELOCYTE 1 % (0-0); NEUTROPHILS 66 % (42.0-75.2); PLATELET ESTIMATE NORMAL (NORMAL)
--- NOTE | 2019-03-06 08:30 | NUR ---
PT PLACED BACK ON PREVIOUS VENT SETTINGS, SEDATION RESUMED.
[2019-03-06 08:39] LABS: PROTHROMBIN TIME 11.6 SECONDS (9.7-12.8)
--- NOTE | 2019-03-06 11:30 | NUR ---
ATTEMPTING SEDATION VACATION AGAIN PER DR CASTILLO'S VERBAL ORDER.
[2019-03-06 11:41] LABS: ARTERIAL BLD GAS O2 SATURATION 95.4 % (92-100); ARTERIAL BLOOD GAS BASE EXCESS -0.8 (-2-2); ARTERIAL BLOOD GAS HCO3 23.1 meq/L (22-26); ARTERIAL BLOOD GAS PCO2 35.9 mmHg (35-45); ARTERIAL BLOOD GAS PO2 74.6 mmHg (80-100); ARTERIAL BLOOD GAS pH 7.43 (7.35-7.45)
--- NOTE | 2019-03-06 12:32 | NUR ---
PT BEGAN COUGHING VIOLENTLY AND HAS BECOME TACHYCARDIC, HYPERTENSIVE, AND AGITATED. SEDATION RESUMED. PROPOFOL AT 10MCG, FENTANYL AT 50CMG
--- NOTE | 2019-03-06 13:01 | NUR ---
DR RIOS HERE TO ASSESS PATIENT AND DISCUSS POSSIBLE TRACHEOSTOMY WITH MIKHAIL ISMMS. CONSENT OBTAINED BY DR RIOS.
--- NOTE | 2019-03-06 16:47 | NUR ---
PT'S HEART RATE PERIODICALLY GOING IN AND OUT OF TACHYCARDIA THAT IS NOT SUSTAINED. DURING PERIODS OF SINUS ARRYTHMIA HEART RATE IS 70-80. DURING TACHYCARDIC EPISODES HEART RATE IS 130-140 BUT ONLY LASTS A FEW SECONDS EACH.
--- NOTE | 2019-03-06 19:07 | NUR ---
REPORT GIVEN TO SADAF CROOK. CARE TRANSFERRED.
[2019-03-07] VITALS (894 sets, daily range): BP systolic 110–191; BP diastolic 61–114; PULSE 82–143; TEMP 97.4–100.2; O2SAT 68–100
[2019-03-07 04:52] LABS: HEMATOCRIT 32.6 % (42.0-52.0); HEMOGLOBIN 10.6 g/dl (13.5-18.0); MEAN CELL VOLUME 93 fl (80.0-100.0); MEAN CORPUSCULAR HEMOGLOBIN 30 pg (27.0-31.0); MEAN CORPUSCULAR HGB CONC 33 g/dl (33.0-37.0); MEAN PLATELET VOLUME 9.7 fl (7.4-10.4); PLATELET COUNT 343 K/mm3 (130-400); REDCELL DISTRIBUTION WIDTH-CV 13.4 % (11.5-14.5)
[2019-03-07 05:02] LABS: ALBUMIN 3.3 gm/dL (3.5-5.0); BILIRUBIN,TOTAL 0.6 mg/dL (0.0-1.0); CALCIUM 8.2 mg/dL (8.4-10.2); MAGNESIUM 2.7 mg/dL (1.6-2.3); POTASSIUM 3.9 mmol/L (3.4-5.0); TOTAL PROTEIN 6.6 gm/dL (6.4-8.2)
[2019-03-07 06:03] LABS: ARTERIAL BLD GAS O2 SATURATION 97.3 % (92-100); ARTERIAL BLD GAS TCO2 CT 27.3; ARTERIAL BLOOD GAS BASE EXCESS 1.6 (-2-2); ARTERIAL BLOOD GAS PCO2 40.2 mmHg (35-45); ARTERIAL BLOOD GAS PO2 95.1 mmHg (80-100); ARTERIAL BLOOD GAS pH 7.43 (7.35-7.45)
--- NOTE | 2019-03-07 06:15 | NUR ---
SEDATION OFF FOR WEANING TRIAL.
--- NOTE | 2019-03-07 06:15 | NUR ---
SEDATION OFF FOR WEANING TRIAL.
[2019-03-07 06:18] LABS: BAND 1 % (0-10); EOSINOPHIL 3 % (0-4); LYMPHOCYTE 12 % (20.0-51.0); NEUTROPHILS 71 % (42.0-75.2); PLATELET ESTIMATE NORMAL (NORMAL)
--- NOTE | 2019-03-07 07:50 | NUR ---
PT EXTUBATED PER ORDER, RESTRAINTS REMOVED AND PT ON 02 AT 4LPM.
--- NOTE | 2019-03-07 08:00 | NUR ---
PT EXTUBATED PER AT BEDSIDE. PT PLACED ON 5LOM. PT COUGHING WITH LITTLE TO NO PRODUCTION. NO SIGNS OF STRIDOR NOTED.
--- NOTE | 2019-03-07 08:10 | NUR ---
Extubated to 5L Oxymask. SPO2 90-92. Requesting sig other. Sig other escorted to room, sitting at bedside, allowing patient to rest.
--- NOTE | 2019-03-07 09:13 | NUR ---
The patient was extubated this day. business and services instructor will contiue to follow.
--- NOTE | 2019-03-07 10:23 | NUR ---
Pt remains drowsy, speech slurred, but more clear than initial. All extremeties weak, L arm flaccid. Head looking rightward despite propping. No gaze deviation. BLE movement equal.
--- NOTE | 2019-03-07 14:15 | NUR ---
First visit from the client account representative. No needs right now.
--- NOTE | 2019-03-07 15:38 | NUR ---
ASSEMBLER PING PONG TABLE student met with the patient and patient's DPOA-HC, May to discuss post acute rehab. ASSEMBLER PING PONG TABLE student presented Medicare.gov's list of IPRs and SNFs. The first choice is [facility] and second choice is [facility]. May signed the patient choice form and put in the chart. ASSEMBLER PING PONG TABLE student informed, Natividad, IPR Director then faxed referral to [facility] at . Awaiting responses.
[2019-03-07 20:45] LABS: ARTERIAL BLD GAS O2 SATURATION 98.2 % (92-100); ARTERIAL BLD GAS TCO2 CT 27.1; ARTERIAL BLOOD GAS BASE EXCESS 2.2 (-2-2); ARTERIAL BLOOD GAS HCO3 25.9 meq/L (22-26); ARTERIAL BLOOD GAS PCO2 37.3 mmHg (35-45); ARTERIAL BLOOD GAS PO2 106.8 mmHg (80-100); ARTERIAL BLOOD GAS pH 7.46 (7.35-7.45)
[2019-03-07 22:10] LABS: MEAN CELL VOLUME 95 fl (80.0-100.0); MEAN CORPUSCULAR HGB CONC 32 g/dl (33.0-37.0); MEAN PLATELET VOLUME 9.5 fl (7.4-10.4); PLATELET COUNT 311 K/mm3 (130-400); RED BLOOD COUNT 2.93 M/mm3 (4.20-5.60); REDCELL DISTRIBUTION WIDTH-CV 13.2 % (11.5-14.5)
[2019-03-07 22:11] LABS: HEMATOCRIT 27.9 % (42.0-52.0); HEMOGLOBIN 8.9 g/dl (13.5-18.0); MEAN CORPUSCULAR HEMOGLOBIN 30 pg (27.0-31.0)
[2019-03-07 22:23] LABS: EOSINOPHIL 5 % (0-4); LYMPHOCYTE 16 % (20.0-51.0); NEUTROPHILS 72 % (42.0-75.2); PLATELET ESTIMATE NORMAL (NORMAL)
[2019-03-07 22:25] LABS: ALBUMIN 2.3 gm/dL (3.5-5.0); BILIRUBIN,TOTAL 0.4 mg/dL (0.0-1.0); CREATININE, serum 0.59 (0.66-1.25); MAGNESIUM 1.8 mg/dL (1.6-2.3)
[2019-03-07 22:26] LABS: CALCIUM 5.9 mg/dL (8.4-10.2)
[2019-03-08] VITALS (653 sets, daily range): BP systolic 90–148; BP diastolic 56–90; PULSE 88–110; TEMP 97.7–98.9; O2SAT 91–99
--- NOTE | 2019-03-08 | NUR ---
03/07/[id number]-Estelle arrived in ICU to assess patient 2206-HR dropped to 95, BP 137/83, RR 30, SpO2 99% 4L/OM with plan to reintubate. Anesthesia called per Estelle and Dr. England. COMPLIANCE SPEC present. 2214-Estelle notifed patient DPOA of plan and patient condition 2229-anesthesia provider arrived 2237-anesthesia provider pushed medications per PICC line 2239-ETT placed 25cm at the lip, HR 82, BP 135/72, SpO2 100% with ventilator. 2245-OG placed, 60cm at the lip with return of gastric contents when suction applied 2247-Fentanyl started per [facility] 2251-soft wrist restraints applied 2257-Propofil initiated due to patient agitation and movement See EMAR for medication administration times other than what is noted here. Patient now resting comfortably, sousa draining to gravity, PICC line infusing well
[2019-03-08 00:08] LABS: ARTERIAL BLD GAS O2 SATURATION 97.2 % (92-100); ARTERIAL BLOOD GAS BASE EXCESS 1.4 (-2-2); ARTERIAL BLOOD GAS HCO3 25.8 meq/L (22-26); ARTERIAL BLOOD GAS PCO2 40.1 mmHg (35-45); ARTERIAL BLOOD GAS PO2 89.1 mmHg (80-100); ARTERIAL BLOOD GAS pH 7.43 (7.35-7.45)
[2019-03-08 06:24] LABS: ARTERIAL BLD GAS O2 SATURATION 96.3 % (92-100); ARTERIAL BLD GAS TCO2 CT 24.8; ARTERIAL BLOOD GAS BASE EXCESS -0.2 (-2-2); ARTERIAL BLOOD GAS HCO3 23.7 meq/L (22-26); ARTERIAL BLOOD GAS PCO2 36.1 mmHg (35-45); ARTERIAL BLOOD GAS PO2 83.5 mmHg (80-100); ARTERIAL BLOOD GAS pH 7.44 (7.35-7.45)
[2019-03-08 06:33] LABS: MEAN CELL VOLUME 95 fl (80.0-100.0); MEAN CORPUSCULAR HGB CONC 31 g/dl (33.0-37.0); MEAN PLATELET VOLUME 9.6 fl (7.4-10.4); PLATELET COUNT 392 K/mm3 (130-400); RED BLOOD COUNT 3.76 M/mm3 (4.20-5.60); REDCELL DISTRIBUTION WIDTH-CV 13.2 % (11.5-14.5)
[2019-03-08 06:39] LABS: ALBUMIN 3.6 gm/dL (3.5-5.0); BILIRUBIN,TOTAL 0.7 mg/dL (0.0-1.0); CREATININE, serum 0.98 (0.66-1.25); MAGNESIUM 2.4 mg/dL (1.6-2.3); POTASSIUM 4.7 mmol/L (3.4-5.0); TOTAL PROTEIN 7.1 gm/dL (6.4-8.2)
[2019-03-08 06:44] LABS: HEMATOCRIT 35.8 % (42.0-52.0); HEMOGLOBIN 11.2 g/dl (13.5-18.0); MEAN CORPUSCULAR HEMOGLOBIN 30 pg (27.0-31.0)
[2019-03-08 08:18] LABS: BAND 9 % (0-10); EOSINOPHIL 4 % (0-4); LYMPHOCYTE 11 % (20.0-51.0); METAMYELOCYTE 1 % (0-0); NEUTROPHILS 69 % (42.0-75.2); PLATELET ESTIMATE NORMAL (NORMAL)
--- NOTE | 2019-03-08 09:00 | NUR ---
PICC intact right upper arm. With sterile technique right upper arm PICC dressing change done with insertion site cleansed with ChloraPrep 1, chlorhexidine impregnated disc applied, skin prep, StatLock, and Tegaderm applied. Primary care nurse reported that 1 port is sluggish and hard to flush. Advised to instill catheter flow. No other signs or symptoms of IV complications noted. Arm wrapped with Arash to protect catheter.
--- NOTE | 2019-03-08 09:05 | NUR ---
The patient is intubated. The team reports the patient maybe needing a watermelon harvesting supervisor care hospital. EXPERIMENTAL DISPLAY BUILDER student met with the patient's life partner/DPOA-HC, May and presented Medicare.gov's list of LTACs. Maria G chose [facility]. Maria G also reported she would like to withdraw the referral to [facility] IPR. EXPERIMENTAL DISPLAY BUILDER student informed Natividad, IPR Director. If post acute rehab is needed vs LTAC, Maria G chose [facility] and the admission nurse is Elsie. EXPERIMENTAL DISPLAY BUILDER student faxed referral to Junito at [facility]. Awaiting response.
--- NOTE | 2019-03-08 16:15 | NUR ---
The patient is to tentatively discharge 03/09 to [facility] in . [facility] reports they can transport the patient at 1200. PRESS SET UP student informed May and the team, all were in agreeance. PRESS SET UP student presented the IM form to May, she understood and signed the form. A copy was provided to May and original was placed in the chart. auto specialty services manager will continue to follow.
--- NOTE | 2019-03-08 18:06 | NUR ---
Sedation vacation omitted dt recent surgery, titrating for post op pain management
--- NOTE | 2019-03-08 19:45 | NUR ---
Bedside report received from ARMAAN Carreon. All lines, tubes, and medications reviewed. Transfer of care at this time.
--- NOTE | 2019-03-08 20:00 | NUR ---
Patient resting quietly on the vent. No signs of distress or pain. Patient is sedated, but still responsive to pain. Vitals are stable. Assessment complete. Lungs are clear bilaterally with diminished bases. HR and rhythm are regular with normal S1 and S2. Bowel sounds active x4. Patient has abdominal binder in place. PEG tube is covered in dressing, dressing remains CDI. Trach is present, has some bloody drainage around site. Sutures remain intact. Patient occasionally has some clear/blood tinged sputum that is thick in small amounts. Patient's right knee has an aquacell in place that is CDI. Pulses are palpable in all extremities. Patient does have +1/trace edema to upper and lower extremities. Patient repositioned for comfort. No further needs at this time. Will continue to monitor. Call light within reach.
[2019-03-09] VITALS (592 sets, daily range): BP systolic 101–152; BP diastolic 62–72; PULSE 87–101; TEMP 98.7–99.1; O2SAT 95–100
--- NOTE | 2019-03-09 | NUR ---
Patient resting on the vent. Trach remains in place. No external bleeding noted. Patient has had very little secretions and infrequently needs suctioning. Vitals obtained and remain stable. Patient is showing no signs of pain or distress. Assessment complete with no changes from previous exam. Patient has no further needs. Will continue to monitor. Call light within reach.
--- NOTE | 2019-03-09 04:40 | NUR ---
Patient more resposive now than he has been this shift. When asked to open his eyes, patient attempts to open them, succeeds to about half way, then close again. Patient does not follow directions to squeeze hands or wiggle toes. Will continue to monitor.
--- NOTE | 2019-03-09 05:00 | NUR ---
Sedation vacation started at this time. Fentanyl decrease. Propofol remains the same at 5mcg. Patient will not be weaned this morning due to FIO2 being too high at 65%.
[2019-03-09 05:11] LABS: ARTERIAL BLD GAS O2 SATURATION 97.2 % (92-100); ARTERIAL BLD GAS TCO2 CT 26.6; ARTERIAL BLOOD GAS BASE EXCESS 0.1 (-2-2); ARTERIAL BLOOD GAS HCO3 25.3 meq/L (22-26); ARTERIAL BLOOD GAS PCO2 42.9 mmHg (35-45); ARTERIAL BLOOD GAS PO2 98.3 mmHg (80-100); ARTERIAL BLOOD GAS pH 7.39 (7.35-7.45)
[2019-03-09 06:06] LABS: BASO # 0.1 (0.0-0.2); BASO % 0.4 % (0.0-2.0); EOS # 0.2 (0.0-0.7); EOS % 1.3 % (0-4.0); GRAN # 8.5 (1.4-6.5); GRAN % 74.8 % (42.2-75.2); HEMOGLOBIN 10.6 g/dl (13.5-18.0); LYMPH # 1.1 (1.2-3.4); LYMPH % 9.7 % (20.0-51.0); MEAN CELL VOLUME 97 fl (80.0-100.0); MEAN CORPUSCULAR HEMOGLOBIN 30 pg (27.0-31.0); MEAN CORPUSCULAR HGB CONC 31 g/dl (33.0-37.0); MEAN PLATELET VOLUME 9.3 fl (7.4-10.4); MONO # 1.5 (0.1-0.6); PLATELET COUNT 377 K/mm3 (130-400); RED BLOOD COUNT 3.49 M/mm3 (4.20-5.60); REDCELL DISTRIBUTION WIDTH-CV 13.5 % (11.5-14.5)
[2019-03-09 06:19] LABS: ALBUMIN 3.4 gm/dL (3.5-5.0); BILIRUBIN,TOTAL 0.7 mg/dL (0.0-1.0); CALCIUM 8.4 mg/dL (8.4-10.2); CREATININE, serum 1.12 (0.66-1.25); MAGNESIUM 2.6 mg/dL (1.6-2.3); POTASSIUM 4.2 mmol/L (3.4-5.0); TOTAL PROTEIN 6.8 gm/dL (6.4-8.2)
--- NOTE | 2019-03-09 06:32 | NUR ---
Patient is now able to open eyes on command and attempts to squeeze hand, but is unsuccessful. Will continue to monitor.
--- NOTE | 2019-03-09 06:52 | NUR ---
PT NOT ON WEANING TRIAL, DID NOT QUALIFY WITH A FI02 OF 65%. PT ON DOCUMENTED SETTINGS EMANUEL WELL WITH NO DISTRESS NOTED AT THIS TIME
--- NOTE | 2019-03-09 07:17 | NUR ---
Bedside report given to ARMAAN Carreon. All lines, tubes, and medications reviewed. Transfer of care at this time.
[2019-03-09] MEDS ORDERED: CENTRUM 240 ML240 ML PEG (08:48)
[2019-03-09] MEDS ORDERED: THIAMINE 1100 MG/TAB PO (08:49)
[2019-03-09] MEDS ORDERED: FOLIC ACID 11 MG/TA1 PO (08:49)
[2019-03-09] MEDS ORDERED: LOVENOX 4040 MG/0.4 SQ (09:04)
[2019-03-09] MEDS ORDERED: IPRATROPIUM BROM3 M1 IH ×2 (09:05→09:06)
[2019-03-09] MEDS ORDERED: LOPRESSOR 225 MG/TAB PO (09:06)
[2019-03-09] MEDS ORDERED: NOVLOG SQ (09:08)
[2019-03-09] MEDS ORDERED: PEPCID 20M20 MG/2 ML IV (09:09)
[2019-03-09] MEDS ORDERED: ZOSYN 3 GM-0.371 PD1 IV (09:10)
--- NOTE | 2019-03-09 11:01 | NUR ---
Patient Monitor obtained Hospitalist signature and patient DPOA-HC signature on EMS transport forms then placed forms on chart. BRYANNA faxed requested updates to Junito at [facility]. BRYANNA then faxed discharge orders. Patient to be transported to [facility] at 1200.
--- NOTE | 2019-03-09 13:00 | NUR ---
[facility] given bedside report. Pt transferred to the [facility] using slide board and staff assist x 4 connected to transport ventilator and monitored x 10 min prior to leaving facility. Summary and relevant consents/DPOA/and DNR order sent in packet with EMS. Pt is discharging to [facility] in [facility]. Report number for vance Ruth RN [phone]. Call placed. RN will call back. Pt will go to room 125.
--- NOTE | 2019-03-09 14:30 | NUR ---
Belongings sent with Sig Other
--- NOTE | 2019-03-09 14:50 | NUR ---
Report called to ARMAAN Ruth at [facility].
== END 2019-03-09 13:00 | DRG 3 ==
LOC: JCC 02-26 07:30 → ICU 02-28 06:26 → JCC 02-28 06:26 → ICU 03-01 09:20
PROVIDERS: Internal Medicine Pulmonary Disease; Nurse Practitioner Family; Physician Assistant; Student in an Organized Health Care Education/Training Program; Surgery; ADMIT Orthopaedic Surgery
PROC: 5A1935Z Respiratory Ventilation, Less than 24 Consecutive Hours (ICD-10-PCS; 2019-02-28)
PROC: 0SRC0J9 Replacement of Right Knee Joint with Synthetic Substitute, Cemented, Open Approach (ICD-10-PCS; principal; 2019-02-28 10:30)
PROC: 0BH18EZ Insertion of Endotracheal Airway into Trachea, Via Natural or Artificial Opening Endoscopic (ICD-10-PCS; 2019-03-01)
PROC: 02HV33Z Insertion of Infusion Device into Superior Vena Cava, Percutaneous Approach (ICD-10-PCS; 2019-03-02)
PROC: 0DH63UZ Insertion of Feeding Device into Stomach, Percutaneous Approach (ICD-10-PCS; 2019-03-08)
PROC: 0B110F4 Bypass Trachea to Cutaneous with Tracheostomy Device, Open Approach (ICD-10-PCS; 2019-03-08 12:30)
DX: M17.11 Unilateral primary osteoarthritis, right knee (principal); J96.01 Acute respiratory failure with hypoxia; I63.511 Cerebral infarction due to unspecified occlusion or stenosis of right middle cerebral artery; G93.49 Other encephalopathy; J90 Pleural effusion, not elsewhere classified; F10.231 Alcohol dependence with withdrawal delirium; E46 Unspecified protein-calorie malnutrition; E66.9 Obesity, unspecified; I10 Essential (primary) hypertension; E78.5 Hyperlipidemia, unspecified; I25.10 Atherosclerotic heart disease of native coronary artery without angina pectoris; M21.372 Foot drop, left foot; G47.30 Sleep apnea, unspecified; R74.0 Nonspecific elevation of levels of transaminase and lactic acid dehydrogenase [LDH]; D64.9 Anemia, unspecified; R73.9 Hyperglycemia, unspecified; Z79.02 Long term (current) use of antithrombotics/antiplatelets; Z79.82 Long term (current) use of aspirin; Z79.84 Long term (current) use of oral hypoglycemic drugs; Z87.891 Personal history of nicotine dependence
CPT/HCPCS: 99223; 99232-AI; 99233-AI; 99239; A4314; C1751; C1776; J0610; J0690; J1630; J1650; J1815; J1940; J2060; J2250; J2270; J2405; J2543; J2704; J3010; J3370; J3411; J3475; J3480; J7030; J7040; J7050; J7120

== ENCOUNTER → 2019-05-31 | Outpatient (CLI) | payer MEDICARE, MEDICAID ==
[~2019-05-31] MED LIST changes: +ALTACE 10MG TAB10 MG PO; +CENTRUM 240 ML240 ML PEG; +FOLIC ACID 11 MG/TA1 PO; +GLUCOPHAGE1000 MG PO; +IPRATROPIUM BROM3 M1 IH; +LOPRESSOR 225 MG/TAB PO; +LOVENOX 4040 MG/0.4 SQ; +NITRO-DUR0.1 MG/PAT TD; +NOVLOG SQ; +PEPCID 20M20 MG/2 ML IV; +THIAMINE 1100 MG/TAB PO; +ZOSYN 3 GM-0.371 PD1 IV
== END ==
LOC: COL.RAD 07:38
DX: I67.82 Cerebral ischemia (principal); G31.9 Degenerative disease of nervous system, unspecified; I63.9 Cerebral infarction, unspecified; E11.69 Type 2 diabetes mellitus with other specified complication; E78.5 Hyperlipidemia, unspecified; G47.33 Obstructive sleep apnea (adult) (pediatric); Z86.73 Personal history of transient ischemic attack (TIA), and cerebral infarction without residual deficits

== ENCOUNTER 2019-07-26 15:45 | Outpatient (RCR) | payer MEDICARE, MEDICAID | END 2019-07-29 | disposition home or self-care (01) | LOC: MKS.ESL.PT | DX: M17.11 Unilateral primary osteoarthritis, right knee (principal); Z96.661 Presence of right artificial ankle joint ==

== ENCOUNTER 2019-08-01 14:15 | Outpatient (RCR) | payer MEDICARE, MEDICAID | END 2019-08-05 | disposition home or self-care (01) | LOC: MKS.ESL.OT | DX: R29.898 Other symptoms and signs involving the musculoskeletal system (principal) ==

== ENCOUNTER 2019-08-06 13:45 | Outpatient (RCR) | payer MEDICARE, MEDICAID | END 2019-08-07 | disposition still patient (30) | LOC: WSST | DX: I69.328 Other speech and language deficits following cerebral infarction (principal); I69.319 Unspecified symptoms and signs involving cognitive functions following cerebral infarction ==

== ENCOUNTER 2019-10-26 13:15 | Outpatient (RCR) | payer MEDICARE, MEDICAID | END 2019-10-28 | disposition home or self-care (01) | LOC: MKS.ESL.PT | DX: I69.954 Hemiplegia and hemiparesis following unspecified cerebrovascular disease affecting left non-dominant side (principal); Z96.651 Presence of right artificial knee joint ==

== ENCOUNTER 2019-10-31 14:30 | Outpatient (RCR) | payer MEDICARE, MEDICAID | END 2019-11-04 | disposition still patient (30) | LOC: MKS.ESL.OT | DX: R29.898 Other symptoms and signs involving the musculoskeletal system (principal) ==

== ENCOUNTER 2019-11-05 13:45 | Outpatient (RCR) | payer MEDICARE, MEDICAID | END 2019-11-06 | disposition still patient (30) | LOC: WSST | DX: I63.9 Cerebral infarction, unspecified (principal) ==

== ENCOUNTER 2019-12-12 13:45 | Outpatient (RCR) | payer MEDICARE, MEDICAID | END 2020-02-10 | disposition home or self-care (01) | LOC: WSST | DX: I69.322 Dysarthria following cerebral infarction (principal); I69.919 Unspecified symptoms and signs involving cognitive functions following unspecified cerebrovascular disease ==

== ENCOUNTER 2019-12-12 15:15 | Outpatient (RCR) | payer MEDICARE, MEDICAID | END 2019-12-12 16:10 | disposition home or self-care (01) | LOC: MKS.ESL.PT 15:15 | DX: M17.11 Unilateral primary osteoarthritis, right knee (principal); I63.89 Other cerebral infarction ==

== ENCOUNTER 2020-01-14 14:00 | Outpatient (RCR) | payer MEDICARE, MEDICAID | END 2020-02-03 | disposition home or self-care (01) | LOC: WSST | DX: I69.922 Dysarthria following unspecified cerebrovascular disease (principal); I69.919 Unspecified symptoms and signs involving cognitive functions following unspecified cerebrovascular disease ==

== ENCOUNTER 2020-04-28 14:21 | Outpatient (RCR) | payer MEDICARE, MEDICAID | END 2020-05-27 | disposition home or self-care (01) | LOC: COL.CR | DX: Z48.812 Encounter for surgical aftercare following surgery on the circulatory system (principal); Z95.5 Presence of coronary angioplasty implant and graft ==